=== PATIENT | male | born 1980 | race Caucasian/White ===

== ENCOUNTER 2024-10-05 20:25 | Emergency (ER) | payer SELFPAY ==
[~2024-10-05] VITALS: Ht 157.5 cm; Wt 100.0 kg
[2024-10-05] MEDS ORDERED: HYDROCODONE/ACETAMINOPHEN 5/325MG TABLET PO ONE (21:30)
[2024-10-05] MEDS ORDERED: MORPHINE SULFATE 4 MG/ML INJ (FOR IV/IM USE) IV ONE (21:30)
[2024-10-06] MEDS: HYDROCODONE/ACETAMINOPHEN 5/325MG TABLET PO NR (00:15)
[2024-10-06] MEDS: ONDANSETRON HCL 4MG/2ML INJ IV ONE (00:21)
[2024-10-06] MEDS: MORPHINE SULFATE 4 MG/ML INJ (FOR IV/IM USE) IV NR (00:22)
[2024-10-06 01:00] VITALS: TEMP 36.66960; O2SAT 100
[2024-10-06] MEDS: PROPOFOL 200MG/20ML VIAL IV ONE (01:00)
[2024-10-06] MEDS: KETAMINE HCL 50 MG/ML 10ML IV ONE (01:00)
[2024-10-06 01:42] VITALS: BP 136/88; PULSE 90; RESP 14; TEMP 98; O2SAT 96
[2024-10-06] MEDS ORDERED: ACET-2708 MT (02:20)
[2024-10-06] MEDS ORDERED: IBUP-2028 MT (02:20)
[2024-10-06] MEDS: TETANUS, DIPHTHERIA, PERTUSSIS VAC/PF 0.5ML (>10YR OLD) IM ONE (02:58)
[2024-10-06] MEDS: CEFAZOLIN 1000MG PREMIX 50 ML IV ONE (03:10)
[2024-10-07] MEDS ORDERED: FENTANYL CITRATE/PF 50MCG/ML 2ML VIAL ONE (07:29)
[2024-10-07] MEDS ORDERED: PROPOFOL 200MG/20ML VIAL IV ONE (07:29)
[2024-10-07] MEDS ORDERED: MIDAZOLAM HCL 2 MG/2 ML VIAL ONE (07:30)
[2024-10-07] MEDS ORDERED: ROCURONIUM BROMIDE 10MG/ML VIAL 5ML IV ONE ×2 (07:42→08:32)
[2024-10-07] MEDS ORDERED: HYDROMORPHONE HCL/PF 2MG/ML INJ ONE (08:02)
[2024-10-07] MEDS ORDERED: LABETALOL 5MG/ML 20ML VIAL IV ONE (08:31)
[2024-10-08] MEDS ORDERED: CEPH500C2 PO (12:03)
[2024-10-08] MEDS ORDERED: IBUP-2029 PO (12:03)
== END 2024-10-06 05:00 | disposition home or self-care (01) ==
LOC: ER 20:25
DX: S52.592A Other fractures of lower end of left radius, initial encounter for closed fracture (principal); S52.612A Displaced fracture of left ulna styloid process, initial encounter for closed fracture; W01.0XXA Fall on same level from slipping, tripping and stumbling without subsequent striking against object, initial encounter; Y93.89 Activity, other specified; Y92.89 Other specified places as the place of occurrence of the external cause; Y99.8 Other external cause status
CPT/HCPCS: 73030; 73070; 73090 ×2; 73110; 25605; 99152; 99285; 90715; 90471; 96365; 96375; J3490; J2405; J2704 ×2; J2270; J3010; J0690; J2250; Z7610; A4565